=== PATIENT | male | born 1945 | race Caucasian/White ===

== ENCOUNTER 2021-09-11 11:42 | Inpatient (IN) ==
[2021-09-11 14:03] LABS: Basophils % 0.6 %; Eosinophils # 0.2 K/mcL (0.0-0.6); Eosinophils % 3.8 %; Hematocrit 36.8 % (37.5-50.1); Hemoglobin 12.3 g/dL (12.9-16.9); Immature Granulocytes % 0.2 % (0-4); Lymphocytes # 1.2 K/mcL (0.6-4.6); Mean Corpuscular HGB Conc 33.4 g/dL (31.6-35.5); Mean Corpuscular Hemoglobin 30.2 pg (28.0-33.3); Mean Corpuscular Volume 90.4 fL (83.0-100.0); Mean Platelet Volume 11.8 fL (9.4-12.4); Monocytes # 0.7 K/mcL (0.0-1.3); Monocytes % 11.1 %; Neutrophils # 4.1 K/mcL (1.6-8.9); Platelet Count 246 K/mcL (140-400); Red Blood Count 4.07 M/mcL (4.19-5.50); Red Cell Distribution Width 12.7 % (11.5-14.5); Segmented Neutrophils % 65.3 %; White Blood Count 6.3 K/mcL (4.3-11.1)
[2021-09-11 14:14] LABS: INR 1.2; Prothrombin Time 13.9 Seconds (9.4-12.1)
[2021-09-11 14:17] LABS: Activated Partial Thrombo Time 37.2 Seconds (26.0-36.0)
[2021-09-11 14:42] LABS: BUN/Creatinine Ratio 14 (6-26); Blood Urea Nitrogen 12 mg/dL (8-23); Calcium 9.4 mg/dL (8.6-10.3); Carbon Dioxide 24 mEq/L (23-29); Chloride 103 mEq/L (98-107); Glucose 91 mg/dL (70-105); Osmolality,Calculated 285 (280-300); Potassium 3.7 mEq/L (3.5-5.1); Sodium 138 mEq/L (136-145); Troponin I < 0.03 ng/mL (< 0.04); eGFR For African Americans > 60 (> 60); eGFR For Non-African Americans > 60 (> 60)
[2021-09-11] MEDS ORDERED: Naloxone 0.4 MG/ML INJ IVP PRN (15:29)
[2021-09-11] MEDS ORDERED: Perflutren Lipid Microsphere 1.3 ML in 0.9 % Sodium Chloride 8.7 ML IVP PRN (15:32)
[2021-09-11] MEDS ORDERED: *HR* Labetalol 20 MG/4 ML SYRINGE IVP ONE ×2 (16:26→22:26)
[2021-09-11] MEDS: *HR* Labetalol 20 MG/4 ML SYRINGE IVP PRN (18:42)
[2021-09-11] MEDS ORDERED: Latanoprost 2.5 ML BOTTLE BOTH EYES SCH (21:00)
[2021-09-11] MEDS: Acetaminophen 325 MG TABLET PO PRN (22:25)
[2021-09-11] MEDS: *HR* Heparin 5,000 UNIT/ML VIAL SQ SCH (22:26)
[2021-09-11] MEDS ORDERED: *HR* HYDROcodone/Acet 5/325 mg TABLET PO ONE (22:35)
[2021-09-12 03:44] LABS: BUN/Creatinine Ratio 13 (6-26); Blood Urea Nitrogen 11 mg/dL (8-23); Calcium 8.8 mg/dL (8.6-10.3); Carbon Dioxide 27 mEq/L (23-29); Chloride 102 mEq/L (98-107); Glucose 110 mg/dL (70-105); Osmolality,Calculated 286 (280-300); Potassium 3.3 mEq/L (3.5-5.1); Sodium 138 mEq/L (136-145); eGFR For African Americans > 60 (> 60); eGFR For Non-African Americans > 60 (> 60)
[2021-09-12 03:48] LABS: Basophils % 0.7 %; Eosinophils # 0.3 K/mcL (0.0-0.6); Eosinophils % 4.4 %; Hematocrit 30.6 % (37.5-50.1); Hemoglobin 10.2 g/dL (12.9-16.9); Immature Granulocytes % 0.4 % (0-4); Lymphocytes # 1.4 K/mcL (0.6-4.6); Lymphocytes % 25.6 %; Mean Corpuscular HGB Conc 33.3 g/dL (31.6-35.5); Mean Corpuscular Hemoglobin 29.5 pg (28.0-33.3); Mean Corpuscular Volume 88.4 fL (83.0-100.0); Mean Platelet Volume 11.4 fL (9.4-12.4); Monocytes # 0.7 K/mcL (0.0-1.3); Monocytes % 11.9 %; Neutrophils # 3.2 K/mcL (1.6-8.9); Platelet Count 209 K/mcL (140-400); Red Blood Count 3.46 M/mcL (4.19-5.50); Red Cell Distribution Width 12.8 % (11.5-14.5); White Blood Count 5.6 K/mcL (4.3-11.1)
[2021-09-12] MEDS ORDERED: *HR* HYDROcodone/Acet 5/325 mg TABLET PO ONE (04:00)
[2021-09-12] MEDS: *HR* Labetalol 20 MG/4 ML SYRINGE IVP PRN (07:39)
[2021-09-12] MEDS: *HR* Heparin 5,000 UNIT/ML VIAL SQ SCH ×3 (08:59→17:20)
[2021-09-12] MEDS: polyethylene glycoL 3350 17 GM POWD.PACK PO SCH (08:59)
[2021-09-12] MEDS ORDERED: lisinopriL 10 MG TABLET PO SCH (09:00)
[2021-09-12] MEDS ORDERED: *HR* Labetalol 20 MG/4 ML SYRINGE IVP ONE (10:52)
[2021-09-12] MEDS: hydroCHLOROthiazide 25 MG TABLET PO SCH (11:24)
[2021-09-12] MEDS ORDERED: *HR* FentaNYL (PF) 100 MCG/2 ML VIAL ONE (15:22)
[2021-09-12] MEDS ORDERED: Heparin 1,000 UNITS/500 mL 500 ML ONE (15:22)
[2021-09-12] MEDS ORDERED: 0.9 % Sodium Chloride 2,000 ML ONE (15:22)
[2021-09-12] MEDS ORDERED: *HR* Midazolam HCl 2 MG/2 ML VIAL ONE (15:22)
[2021-09-12] MEDS ORDERED: ISOVUE-370 200 ML INFUS..BTL ONE (15:22)
[2021-09-12] MEDS ORDERED: *HR* Heparin 10,000 UNIT/10 ML VIAL ONE (15:22)
[2021-09-12] MEDS ORDERED: Nitroglycerin 1,000 MCG/5 ML VIAL IV ONE (15:23)
[2021-09-12] MEDS: niCARdipine 20 MG/200 ML MLS IVC SCH (17:20)
[2021-09-12] MEDS ORDERED: Isovue-370 500 ML BOTTLE IVP ONE (18:05)
[2021-09-12] MEDS: Acetaminophen/Butalbital/CaffeineTABLET PO PRN (18:28)
[2021-09-13] MEDS: *HR* Heparin 5,000 UNIT/ML VIAL SQ SCH ×4 (05:29→23:34)
[2021-09-13 05:50] LABS: Basophils % 0.6 %; Eosinophils # 0.2 K/mcL (0.0-0.6); Hematocrit 31.9 % (37.5-50.1); Hemoglobin 10.8 g/dL (12.9-16.9); Immature Granulocytes % 0.2 % (0-4); Lymphocytes # 1.3 K/mcL (0.6-4.6); Lymphocytes % 25.4 %; Mean Corpuscular HGB Conc 33.9 g/dL (31.6-35.5); Mean Corpuscular Hemoglobin 30.1 pg (28.0-33.3); Mean Corpuscular Volume 88.9 fL (83.0-100.0); Mean Platelet Volume 11.1 fL (9.4-12.4); Monocytes # 0.7 K/mcL (0.0-1.3); Monocytes % 13.4 %; Platelet Count 238 K/mcL (140-400); Red Blood Count 3.59 M/mcL (4.19-5.50); Red Cell Distribution Width 12.7 % (11.5-14.5); Segmented Neutrophils % 56.4 %; White Blood Count 5.3 K/mcL (4.3-11.1)
[2021-09-13 06:17] LABS: BUN/Creatinine Ratio 12 (6-26); Blood Urea Nitrogen 11 mg/dL (8-23); Calcium 9.1 mg/dL (8.6-10.3); Carbon Dioxide 27 mEq/L (23-29); Chloride 101 mEq/L (98-107); Glucose 106 mg/dL (70-105); Osmolality,Calculated 280 (280-300); Potassium 3.5 mEq/L (3.5-5.1); Sodium 135 mEq/L (136-145); eGFR For African Americans > 60 (> 60); eGFR For Non-African Americans > 60 (> 60)
[2021-09-13] MEDS: hydroCHLOROthiazide 25 MG TABLET PO SCH (08:05)
[2021-09-13] MEDS: polyethylene glycoL 3350 17 GM POWD.PACK PO SCH ×2 (08:06→13:42)
[2021-09-13] MEDS: Aspirin Enteric Coated 81 MG Tablet PO SCH (13:42)
[2021-09-13] MEDS: carvediloL 6.25 MG TABLET PO SCH (16:35)
[2021-09-13] MEDS: niCARdipine 20 MG/200 ML MLS IVC SCH ×3 (21:21→21:23)
[2021-09-13] MEDS ORDERED: Latanoprost 2.5 ML BOTTLE BOTH EYES ONE ×2 (21:21→22:00)
[2021-09-13] MEDS: Acetaminophen/Butalbital/CaffeineTABLET PO PRN (23:38)
[2021-09-14 02:06] LABS: Basophils # 0.1 K/mcL (0.0-0.2); Eosinophils # 0.3 K/mcL (0.0-0.6); Eosinophils % 6.1 %; Hematocrit 33.5 % (37.5-50.1); Hemoglobin 10.9 g/dL (12.9-16.9); Immature Granulocytes % 0.6 % (0-4); Lymphocytes # 1.6 K/mcL (0.6-4.6); Mean Corpuscular HGB Conc 32.5 g/dL (31.6-35.5); Mean Corpuscular Hemoglobin 28.9 pg (28.0-33.3); Mean Corpuscular Volume 88.9 fL (83.0-100.0); Mean Platelet Volume 11.2 fL (9.4-12.4); Monocytes # 0.8 K/mcL (0.0-1.3); Monocytes % 14.5 %; Neutrophils # 2.5 K/mcL (1.6-8.9); Platelet Count 242 K/mcL (140-400); Red Blood Count 3.77 M/mcL (4.19-5.50); Red Cell Distribution Width 12.8 % (11.5-14.5); Segmented Neutrophils % 46.8 %; White Blood Count 5.3 K/mcL (4.3-11.1)
[2021-09-14 02:22] LABS: BUN/Creatinine Ratio 15 (6-26); Blood Urea Nitrogen 14 mg/dL (8-23); Calcium 9.2 mg/dL (8.6-10.3); Carbon Dioxide 30 mEq/L (23-29); Chloride 101 mEq/L (98-107); Glucose 102 mg/dL (70-105); Osmolality,Calculated 287 (280-300); Potassium 3.6 mEq/L (3.5-5.1); Sodium 138 mEq/L (136-145); eGFR For African Americans > 60 (> 60); eGFR For Non-African Americans > 60 (> 60)
[2021-09-14] MEDS: polyethylene glycoL 3350 17 GM POWD.PACK PO SCH (07:45)
[2021-09-14] MEDS: *HR* Heparin 5,000 UNIT/ML VIAL SQ SCH ×3 (07:45→23:25)
[2021-09-14] MEDS: hydroCHLOROthiazide 25 MG TABLET PO SCH (07:45)
[2021-09-14] MEDS: carvediloL 6.25 MG TABLET PO SCH ×2 (07:45→16:37)
[2021-09-14] MEDS: Aspirin Enteric Coated 81 MG Tablet PO SCH (07:45)
[2021-09-14] MEDS: niCARdipine 20 MG/200 ML MLS IVC SCH ×4 (12:03→23:18)
[2021-09-14] MEDS: Acetaminophen 325 MG TABLET PO PRN (23:19)
[2021-09-15] MEDS: niCARdipine 20 MG/200 ML MLS IVC SCH ×6 (06:55→21:08)
[2021-09-15] MEDS: hydroCHLOROthiazide 25 MG TABLET PO SCH (08:20)
[2021-09-15] MEDS: *HR* Heparin 5,000 UNIT/ML VIAL SQ SCH ×2 (08:20→17:12)
[2021-09-15] MEDS: Aspirin Enteric Coated 81 MG Tablet PO SCH (08:20)
[2021-09-15] MEDS: carvediloL 6.25 MG TABLET PO SCH ×2 (08:20→17:12)
[2021-09-15 09:01] LABS: Hematocrit 35.8 % (37.5-50.1); Mean Corpuscular HGB Conc 33.5 g/dL (31.6-35.5); Mean Corpuscular Hemoglobin 30.2 pg (28.0-33.3); Mean Corpuscular Volume 89.9 fL (83.0-100.0); Mean Platelet Volume 11.1 fL (9.4-12.4); Platelet Count 270 K/mcL (140-400); Red Blood Count 3.98 M/mcL (4.19-5.50); Red Cell Distribution Width 12.7 % (11.5-14.5); White Blood Count 5.1 K/mcL (4.3-11.1)
[2021-09-15 09:20] LABS: BUN/Creatinine Ratio 17 (6-26); Blood Urea Nitrogen 19 mg/dL (8-23); Calcium 9.1 mg/dL (8.6-10.3); Carbon Dioxide 32 mEq/L (23-29); Chloride 98 mEq/L (98-107); Glucose 164 mg/dL (70-105); Osmolality,Calculated 290 (280-300); Potassium 3.9 mEq/L (3.5-5.1); Sodium 137 mEq/L (136-145); eGFR For African Americans > 60 (> 60); eGFR For Non-African Americans > 60 (> 60)
[2021-09-15] MEDS: polyethylene glycoL 3350 17 GM POWD.PACK PO SCH (13:40)
[2021-09-16] MEDS: *HR* Heparin 5,000 UNIT/ML VIAL SQ SCH ×4 (00:01→23:37)
[2021-09-16 01:10] LABS: Hemoglobin 12.2 g/dL (12.9-16.9); Mean Corpuscular Hemoglobin 29.3 pg (28.0-33.3); Mean Corpuscular Volume 88.7 fL (83.0-100.0); Platelet Count 276 K/mcL (140-400); Red Blood Count 4.17 M/mcL (4.19-5.50); Red Cell Distribution Width 12.8 % (11.5-14.5); White Blood Count 6.9 K/mcL (4.3-11.1)
[2021-09-16 01:28] LABS: BUN/Creatinine Ratio 23 (6-26); Blood Urea Nitrogen 25 mg/dL (8-23); Calcium 9.4 mg/dL (8.6-10.3); Carbon Dioxide 29 mEq/L (23-29); Chloride 98 mEq/L (98-107); Glucose 102 mg/dL (70-105); Osmolality,Calculated 285 (280-300); Potassium 3.8 mEq/L (3.5-5.1); Sodium 135 mEq/L (136-145); eGFR For African Americans > 60 (> 60); eGFR For Non-African Americans > 60 (> 60)
[2021-09-16] MEDS: niCARdipine 20 MG/200 ML MLS IVC SCH ×3 (03:07→09:56)
[2021-09-16] MEDS: hydroCHLOROthiazide 25 MG TABLET PO SCH (07:22)
[2021-09-16] MEDS: Aspirin Enteric Coated 81 MG Tablet PO SCH (07:22)
[2021-09-16] MEDS: carvediloL 6.25 MG TABLET PO SCH ×2 (07:22→16:36)
[2021-09-16] MEDS: polyethylene glycoL 3350 17 GM POWD.PACK PO SCH (12:47)
[2021-09-16] MEDS: Melatonin 3 MG TABLET PO SCH (20:26)
[2021-09-17 04:00] LABS: Hematocrit 34.7 % (37.5-50.1); Hemoglobin 11.5 g/dL (12.9-16.9); Mean Corpuscular HGB Conc 33.1 g/dL (31.6-35.5); Mean Corpuscular Hemoglobin 29.7 pg (28.0-33.3); Mean Corpuscular Volume 89.7 fL (83.0-100.0); Mean Platelet Volume 10.7 fL (9.4-12.4); Platelet Count 250 K/mcL (140-400); Red Blood Count 3.87 M/mcL (4.19-5.50); Red Cell Distribution Width 12.9 % (11.5-14.5); White Blood Count 5.9 K/mcL (4.3-11.1)
[2021-09-17 04:18] LABS: Calcium 9.2 mg/dL (8.6-10.3); Potassium 3.8 mEq/L (3.5-5.1)
[2021-09-17] MEDS ORDERED: *HR* Phenylephrine 10 MG/ML VIAL ONE (06:14)
[2021-09-17] MEDS ORDERED: *HR* FentaNYL (PF) 250 MCG/5 ML VIAL ONE (06:15)
[2021-09-17] MEDS ORDERED: *HR* Midazolam HCl 5 MG/5 ML VIAL IVP ONE (06:15)
[2021-09-17] MEDS ORDERED: *HR* Heparin 10,000 UNIT/10 ML VIAL ONE (06:27)
[2021-09-17] MEDS ORDERED: Protamine Sulfate 50 MG/5 ML VIAL IVP ONE (06:27)
[2021-09-17] MEDS ORDERED: 0.9 % Sodium Chloride 4,000 ML ONE (06:28)
[2021-09-17] MEDS ORDERED: Heparin 1,000 UNITS/500 mL 1,500 ML ONE (06:28)
[2021-09-17] MEDS ORDERED: ISOVUE-370 200 ML INFUS..BTL ONE (06:28)
[2021-09-17] MEDS ORDERED: Nitroglycerin 1,000 MCG/5 ML VIAL IV ONE (06:28)
[2021-09-17] MEDS: carvediloL 6.25 MG TABLET PO SCH ×2 (06:36→16:50)
[2021-09-17] MEDS ORDERED: CeFAZolin Syr 2,000MG/20 ML 2,000 MG/20 ML SYRINGE IVPB ONE (07:00)
[2021-09-17] MEDS ORDERED: Vancomycin 1,000 MG in Sodium Chloride IRRigation 250 ML IR ONE (07:00)
[2021-09-17] MEDS ORDERED: Vancomycin 1,000 MG VIAL ONE (07:14)
[2021-09-17] MEDS ORDERED: 0.9 % Sodium Chloride 250 ML ONE (07:15)
[2021-09-17] MEDS ORDERED: 0.9 % Sodium Chloride 1,000 ML ONE (07:15)
[2021-09-17] MEDS ORDERED: Vancomycin 1,250 MG/262.5 ML IV.SOLN IVPB ONE (08:00)
[2021-09-17] MEDS ORDERED: Perflutren Lipid Microsphere 1.3 ML in 0.9 % Sodium Chloride 8.7 ML IVP PRN ×2 (08:33→14:43)
[2021-09-17] MEDS ORDERED: niCARdipine 20 MG/200 ML MLS IVC ONE (08:37)
[2021-09-17] MEDS: hydroCHLOROthiazide 25 MG TABLET PO SCH (10:46)
[2021-09-17] MEDS: Aspirin Enteric Coated 81 MG Tablet PO SCH (10:46)
[2021-09-17] MEDS: *HR* Heparin 5,000 UNIT/ML VIAL SQ SCH ×2 (10:46→16:50)
[2021-09-17] MEDS: polyethylene glycoL 3350 17 GM POWD.PACK PO SCH (10:47)
[2021-09-17] MEDS: niCARdipine 20 MG/200 ML MLS IVC SCH (10:48)
[2021-09-17] MEDS: 0.9 % Sodium Chloride 1,000 ML IVC SCH ×2 (10:53→20:08)
[2021-09-17] MEDS ORDERED: *HR* Labetalol 20 MG/4 ML SYRINGE IVP ONE (11:30)
[2021-09-17] MEDS ORDERED: *HR* Propofol 200 MG/20 ML VIAL IVP ONE (11:30)
[2021-09-17] MEDS: CeFAZolin 2,000 MG/120 ML BAG IVPB SCH (17:48)
[2021-09-17] MEDS: Melatonin 3 MG TABLET PO SCH (20:07)
[2021-09-18] MEDS: CeFAZolin 2,000 MG/120 ML BAG IVPB SCH ×3 (00:28→18:05)
[2021-09-18] MEDS: *HR* Heparin 5,000 UNIT/ML VIAL SQ SCH ×3 (00:28→15:30)
[2021-09-18 04:02] LABS: Hematocrit 33.9 % (37.5-50.1); Hemoglobin 11.3 g/dL (12.9-16.9); Mean Corpuscular HGB Conc 33.3 g/dL (31.6-35.5); Mean Corpuscular Hemoglobin 29.8 pg (28.0-33.3); Mean Corpuscular Volume 89.4 fL (83.0-100.0); Mean Platelet Volume 10.6 fL (9.4-12.4); Platelet Count 243 K/mcL (140-400); Red Blood Count 3.79 M/mcL (4.19-5.50); White Blood Count 8.1 K/mcL (4.3-11.1)
[2021-09-18 04:13] LABS: BUN/Creatinine Ratio 24 (6-26); Blood Urea Nitrogen 27 mg/dL (8-23); Calcium 8.6 mg/dL (8.6-10.3); Carbon Dioxide 26 mEq/L (23-29); Chloride 104 mEq/L (98-107); Glucose 115 mg/dL (70-105); Osmolality,Calculated 290 (280-300); Potassium 3.8 mEq/L (3.5-5.1); Sodium 137 mEq/L (136-145); eGFR For African Americans > 60 (> 60); eGFR For Non-African Americans > 60 (> 60)
[2021-09-18] MEDS: 0.9 % Sodium Chloride 1,000 ML IVC SCH ×3 (05:48→21:24)
[2021-09-18] MEDS: polyethylene glycoL 3350 17 GM POWD.PACK PO SCH (08:30)
[2021-09-18] MEDS: Aspirin Enteric Coated 81 MG Tablet PO SCH (08:30)
[2021-09-18] MEDS: carvediloL 6.25 MG TABLET PO SCH ×2 (08:30→16:06)
[2021-09-18] MEDS: hydroCHLOROthiazide 25 MG TABLET PO SCH (08:30)
[2021-09-18] MEDS ORDERED: Naloxone 0.4 MG/ML INJ IVP PRN (18:27)
[2021-09-18] MEDS: amLODIPine 5 MG TABLET PO SCH ×2 (19:43→21:23)
[2021-09-18] MEDS: Melatonin 3 MG TABLET PO SCH (21:23)
[2021-09-19] MEDS: *HR* Heparin 5,000 UNIT/ML VIAL SQ SCH ×3 (01:12→16:54)
[2021-09-19] MEDS: Acetaminophen 325 MG TABLET PO PRN (01:14)
[2021-09-19] MEDS: 0.9 % Sodium Chloride 1,000 ML IVC SCH ×2 (01:15→16:27)
[2021-09-19 01:54] LABS: Hematocrit 34.4 % (37.5-50.1); Hemoglobin 11.2 g/dL (12.9-16.9); Mean Corpuscular HGB Conc 32.6 g/dL (31.6-35.5); Mean Corpuscular Volume 89.1 fL (83.0-100.0); Mean Platelet Volume 10.4 fL (9.4-12.4); Platelet Count 212 K/mcL (140-400); Red Blood Count 3.86 M/mcL (4.19-5.50); Red Cell Distribution Width 13.2 % (11.5-14.5); White Blood Count 9.6 K/mcL (4.3-11.1)
[2021-09-19] MEDS ORDERED: CeFAZolin 2,000 MG/120 ML BAG IVPB SCH (02:00)
[2021-09-19 03:28] LABS: BUN/Creatinine Ratio 20 (6-26); Blood Urea Nitrogen 20 mg/dL (8-23); Calcium 8.7 mg/dL (8.6-10.3); Carbon Dioxide 27 mEq/L (23-29); Chloride 104 mEq/L (98-107); Glucose 112 mg/dL (70-105); Osmolality,Calculated 287 (280-300); Potassium 3.6 mEq/L (3.5-5.1); Sodium 137 mEq/L (136-145); eGFR For African Americans > 60 (> 60); eGFR For Non-African Americans > 60 (> 60)
[2021-09-19] MEDS ORDERED: carvediloL 6.25 MG TABLET PO SCH ×2 (06:30→17:00)
[2021-09-19] MEDS: polyethylene glycoL 3350 17 GM POWD.PACK PO SCH (08:26)
[2021-09-19] MEDS: amLODIPine 5 MG TABLET PO SCH ×2 (08:27→21:44)
[2021-09-19] MEDS: Aspirin Enteric Coated 81 MG Tablet PO SCH (08:28)
[2021-09-19] MEDS ORDERED: carvediloL 6.25 MG TABLET PO ONE (10:30)
[2021-09-19] MEDS: lisinopriL 5 MG TABLET PO SCH (10:56)
[2021-09-19] MEDS: carvediloL 6.25 MG TABLET PO SCH (16:50)
[2021-09-19] MEDS: Melatonin 3 MG TABLET PO SCH (21:44)
[2021-09-20] MEDS: *HR* Heparin 5,000 UNIT/ML VIAL SQ SCH ×3 (00:30→17:29)
[2021-09-20] MEDS: 0.9 % Sodium Chloride 1,000 ML IVC SCH (08:04)
[2021-09-20] MEDS: carvediloL 6.25 MG TABLET PO SCH ×2 (08:05→17:29)
[2021-09-20] MEDS: Aspirin Enteric Coated 81 MG Tablet PO SCH (08:05)
[2021-09-20] MEDS: polyethylene glycoL 3350 17 GM POWD.PACK PO SCH (08:06)
[2021-09-20] MEDS: amLODIPine 5 MG TABLET PO SCH ×2 (08:09→22:10)
[2021-09-20] MEDS: lisinopriL 5 MG TABLET PO SCH (10:04)
[2021-09-20 10:20] LABS: Basophils % 0.4 %; Eosinophils # 0.2 K/mcL (0.0-0.6); Eosinophils % 2.3 %; Hematocrit 31.8 % (37.5-50.1); Hemoglobin 10.5 g/dL (12.9-16.9); Immature Granulocytes % 0.4 % (0-4); Lymphocytes # 1.1 K/mcL (0.6-4.6); Lymphocytes % 14.6 %; Mean Corpuscular Hemoglobin 30.2 pg (28.0-33.3); Mean Corpuscular Volume 91.4 fL (83.0-100.0); Mean Platelet Volume 10.5 fL (9.4-12.4); Monocytes # 0.8 K/mcL (0.0-1.3); Monocytes % 10.4 %; Neutrophils # 5.3 K/mcL (1.6-8.9); Platelet Count 187 K/mcL (140-400); Red Blood Count 3.48 M/mcL (4.19-5.50); Red Cell Distribution Width 13.4 % (11.5-14.5); Segmented Neutrophils % 71.9 %; White Blood Count 7.4 K/mcL (4.3-11.1)
[2021-09-20 10:39] LABS: BUN/Creatinine Ratio 24 (6-26); Blood Urea Nitrogen 29 mg/dL (8-23); Calcium 8.7 mg/dL (8.6-10.3); Carbon Dioxide 28 mEq/L (23-29); Chloride 103 mEq/L (98-107); Glucose 154 mg/dL (70-105); Osmolality,Calculated 293 (280-300); Potassium 3.5 mEq/L (3.5-5.1); Sodium 137 mEq/L (136-145); eGFR For African Americans > 60 (> 60); eGFR For Non-African Americans 59 (> 60)
[2021-09-20] MEDS: Melatonin 3 MG TABLET PO SCH (22:11)
[2021-09-21] MEDS: *HR* Heparin 5,000 UNIT/ML VIAL SQ SCH ×3 (00:30→16:24)
[2021-09-21 06:29] LABS: Basophils # 0.1 K/mcL (0.0-0.2); Basophils % 0.8 %; Eosinophils # 0.2 K/mcL (0.0-0.6); Eosinophils % 2.3 %; Hematocrit 31.3 % (37.5-50.1); Hemoglobin 10.3 g/dL (12.9-16.9); Immature Granulocytes % 0.6 % (0-4); Lymphocytes # 1.7 K/mcL (0.6-4.6); Lymphocytes % 21.8 %; Mean Corpuscular HGB Conc 32.9 g/dL (31.6-35.5); Mean Corpuscular Hemoglobin 29.8 pg (28.0-33.3); Mean Corpuscular Volume 90.5 fL (83.0-100.0); Mean Platelet Volume 11.4 fL (9.4-12.4); Monocytes % 12.3 %; Neutrophils # 4.8 K/mcL (1.6-8.9); Platelet Count 201 K/mcL (140-400); Red Blood Count 3.46 M/mcL (4.19-5.50); Red Cell Distribution Width 13.6 % (11.5-14.5); Segmented Neutrophils % 62.2 %; White Blood Count 7.7 K/mcL (4.3-11.1)
[2021-09-21 07:22] LABS: BUN/Creatinine Ratio 31 (6-26); Blood Urea Nitrogen 31 mg/dL (8-23); Calcium 8.7 mg/dL (8.6-10.3); Carbon Dioxide 29 mEq/L (23-29); Chloride 105 mEq/L (98-107); Glucose 132 mg/dL (70-105); Magnesium 1.6 mg/dL (1.6-2.6); Osmolality,Calculated 296 (280-300); Potassium 3.6 mEq/L (3.5-5.1); Sodium 139 mEq/L (136-145); eGFR For African Americans > 60 (> 60); eGFR For Non-African Americans > 60 (> 60)
[2021-09-21] MEDS: Aspirin Enteric Coated 81 MG Tablet PO SCH (08:04)
[2021-09-21] MEDS: amLODIPine 5 MG TABLET PO SCH ×2 (08:05→21:52)
[2021-09-21] MEDS: polyethylene glycoL 3350 17 GM POWD.PACK PO SCH (08:05)
[2021-09-21] MEDS: lisinopriL 5 MG TABLET PO SCH (08:06)
[2021-09-21] MEDS: carvediloL 6.25 MG TABLET PO SCH ×2 (08:06→16:25)
[2021-09-21] MEDS: Melatonin 3 MG TABLET PO SCH (21:52)
[2021-09-22] MEDS: *HR* Heparin 5,000 UNIT/ML VIAL SQ SCH ×3 (01:38→17:11)
[2021-09-22 06:32] LABS: Basophils % 0.5 %; Eosinophils # 0.1 K/mcL (0.0-0.6); Eosinophils % 1.7 %; Hematocrit 29.9 % (37.5-50.1); Hemoglobin 10.2 g/dL (12.9-16.9); Immature Granulocytes % 0.5 % (0-4); Lymphocytes # 1.4 K/mcL (0.6-4.6); Lymphocytes % 16.3 %; Mean Corpuscular HGB Conc 34.1 g/dL (31.6-35.5); Mean Corpuscular Hemoglobin 30.8 pg (28.0-33.3); Mean Corpuscular Volume 90.3 fL (83.0-100.0); Mean Platelet Volume 11.4 fL (9.4-12.4); Monocytes # 1.1 K/mcL (0.0-1.3); Monocytes % 13.5 %; Neutrophils # 5.7 K/mcL (1.6-8.9); Platelet Count 226 K/mcL (140-400); Red Blood Count 3.31 M/mcL (4.19-5.50); Red Cell Distribution Width 13.6 % (11.5-14.5); Segmented Neutrophils % 67.5 %; White Blood Count 8.4 K/mcL (4.3-11.1)
[2021-09-22] MEDS: Aspirin Enteric Coated 81 MG Tablet PO SCH (07:59)
[2021-09-22] MEDS: amLODIPine 5 MG TABLET PO SCH ×2 (07:59→20:33)
[2021-09-22] MEDS: carvediloL 6.25 MG TABLET PO SCH ×2 (08:00→17:11)
[2021-09-22] MEDS: lisinopriL 5 MG TABLET PO SCH (08:00)
[2021-09-22] MEDS: polyethylene glycoL 3350 17 GM POWD.PACK PO SCH (08:01)
[2021-09-22 10:41] LABS: BUN/Creatinine Ratio 31 (6-26); Blood Urea Nitrogen 30 mg/dL (8-23); Calcium 8.8 mg/dL (8.6-10.3); Carbon Dioxide 28 mEq/L (23-29); Chloride 104 mEq/L (98-107); Glucose 156 mg/dL (70-105); Magnesium 1.8 mg/dL (1.6-2.6); Osmolality,Calculated 293 (280-300); Potassium 3.9 mEq/L (3.5-5.1); Sodium 137 mEq/L (136-145); eGFR For African Americans > 60 (> 60); eGFR For Non-African Americans > 60 (> 60)
[2021-09-22] MEDS: Melatonin 3 MG TABLET PO SCH (20:32)
[2021-09-23] MEDS: *HR* Heparin 5,000 UNIT/ML VIAL SQ SCH ×3 (00:41→16:58)
[2021-09-23 07:08] LABS: Basophils % 0.4 %; Eosinophils # 0.1 K/mcL (0.0-0.6); Eosinophils % 1.1 %; Hematocrit 31.7 % (37.5-50.1); Hemoglobin 10.7 g/dL (12.9-16.9); Immature Granulocytes % 0.5 % (0-4); Lymphocytes # 1.4 K/mcL (0.6-4.6); Lymphocytes % 15.5 %; Mean Corpuscular HGB Conc 33.8 g/dL (31.6-35.5); Mean Corpuscular Hemoglobin 30.3 pg (28.0-33.3); Mean Corpuscular Volume 89.8 fL (83.0-100.0); Mean Platelet Volume 11.1 fL (9.4-12.4); Monocytes # 1.2 K/mcL (0.0-1.3); Monocytes % 12.6 %; Neutrophils # 6.5 K/mcL (1.6-8.9); Platelet Count 217 K/mcL (140-400); Red Blood Count 3.53 M/mcL (4.19-5.50); Red Cell Distribution Width 13.4 % (11.5-14.5); Segmented Neutrophils % 69.9 %; White Blood Count 9.3 K/mcL (4.3-11.1)
[2021-09-23 07:28] LABS: BUN/Creatinine Ratio 30 (6-26); Blood Urea Nitrogen 28 mg/dL (8-23); Calcium 8.9 mg/dL (8.6-10.3); Carbon Dioxide 28 mEq/L (23-29); Chloride 103 mEq/L (98-107); Glucose 113 mg/dL (70-105); Magnesium 1.7 mg/dL (1.6-2.6); Osmolality,Calculated 292 (280-300); Potassium 3.8 mEq/L (3.5-5.1); Sodium 138 mEq/L (136-145); eGFR For African Americans > 60 (> 60); eGFR For Non-African Americans > 60 (> 60)
[2021-09-23] MEDS: Aspirin Enteric Coated 81 MG Tablet PO SCH (07:29)
[2021-09-23] MEDS: lisinopriL 5 MG TABLET PO SCH (07:29)
[2021-09-23] MEDS: amLODIPine 5 MG TABLET PO SCH ×2 (07:30→21:17)
[2021-09-23] MEDS: carvediloL 6.25 MG TABLET PO SCH ×2 (07:30→15:21)
[2021-09-23] MEDS: polyethylene glycoL 3350 17 GM POWD.PACK PO SCH (07:30)
[2021-09-23] MEDS ORDERED: 0.9 % Sodium Chloride 1,000 ML IVC SCH (10:15)
[2021-09-23] MEDS ORDERED: *HR* FentaNYL (PF) 100 MCG/2 ML VIAL ONE (11:55)
[2021-09-23] MEDS ORDERED: *HR* Midazolam HCl 2 MG/2 ML VIAL ONE (11:55)
[2021-09-23] MEDS ORDERED: *HR* Heparin 10,000 UNIT/10 ML VIAL ONE (11:56)
[2021-09-23] MEDS ORDERED: Nitroglycerin 1,000 MCG/5 ML VIAL IV ONE (11:56)
[2021-09-23] MEDS ORDERED: ISOVUE-370 200 ML INFUS..BTL ONE ×2 (11:56→13:35)
[2021-09-23] MEDS ORDERED: 0.9 % Sodium Chloride 1,000 ML ONE ×2 (11:56→11:59)
[2021-09-23] MEDS ORDERED: Heparin 1,000 UNITS/500 mL 500 ML ONE ×2 (11:56→13:29)
[2021-09-23] MEDS ORDERED: Tirofiban 12.5 MG/250ML 12.5 MG/250 ML BAG ONE (12:19)
[2021-09-23] MEDS: Acetaminophen/Butalbital/CaffeineTABLET PO PRN (15:18)
[2021-09-23] MEDS: Melatonin 3 MG TABLET PO SCH (21:16)
[2021-09-24] MEDS: *HR* Heparin 5,000 UNIT/ML VIAL SQ SCH ×3 (00:01→16:43)
[2021-09-24] MEDS: Acetaminophen 325 MG TABLET PO PRN ×3 (00:56→18:58)
[2021-09-24 03:54] LABS: Basophils % 0.3 %; Eosinophils % 0.4 %; Hematocrit 30.6 % (37.5-50.1); Immature Granulocytes % 0.4 % (0-4); Lymphocytes # 0.9 K/mcL (0.6-4.6); Lymphocytes % 8.2 %; Mean Corpuscular HGB Conc 32.7 g/dL (31.6-35.5); Mean Corpuscular Hemoglobin 29.2 pg (28.0-33.3); Mean Corpuscular Volume 89.5 fL (83.0-100.0); Mean Platelet Volume 11.3 fL (9.4-12.4); Monocytes # 1.2 K/mcL (0.0-1.3); Monocytes % 11.6 %; Neutrophils # 8.4 K/mcL (1.6-8.9); Platelet Count 210 K/mcL (140-400); Red Blood Count 3.42 M/mcL (4.19-5.50); Red Cell Distribution Width 13.6 % (11.5-14.5); Segmented Neutrophils % 79.1 %; White Blood Count 10.6 K/mcL (4.3-11.1)
[2021-09-24 04:14] LABS: BUN/Creatinine Ratio 30 (6-26); Blood Urea Nitrogen 31 mg/dL (8-23); Calcium 8.8 mg/dL (8.6-10.3); Carbon Dioxide 26 mEq/L (23-29); Chloride 102 mEq/L (98-107); Glucose 129 mg/dL (70-105); Magnesium 2.1 mg/dL (1.6-2.6); Osmolality,Calculated 288 (280-300); Sodium 135 mEq/L (136-145); eGFR For African Americans > 60 (> 60); eGFR For Non-African Americans > 60 (> 60)
[2021-09-24] MEDS ORDERED: 0.9 % Sodium Chloride 1,000 ML IVC SCH (08:30)
[2021-09-24] MEDS: lisinopriL 5 MG TABLET PO SCH (08:48)
[2021-09-24] MEDS: Aspirin Enteric Coated 81 MG Tablet PO SCH (08:49)
[2021-09-24] MEDS: amLODIPine 5 MG TABLET PO SCH ×2 (08:49→20:53)
[2021-09-24] MEDS: polyethylene glycoL 3350 17 GM POWD.PACK PO SCH (08:52)
[2021-09-24] MEDS: carvediloL 6.25 MG TABLET PO SCH ×2 (09:00→16:44)
[2021-09-24] MEDS: Melatonin 3 MG TABLET PO SCH (20:53)
[2021-09-25] MEDS: *HR* Heparin 5,000 UNIT/ML VIAL SQ SCH ×4 (01:06→23:42)
[2021-09-25] MEDS: Acetaminophen 325 MG TABLET PO PRN ×2 (01:07→11:03)
[2021-09-25 06:38] LABS: Basophils % 0.4 %; Eosinophils # 0.1 K/mcL (0.0-0.6); Eosinophils % 1.6 %; Hematocrit 30.8 % (37.5-50.1); Immature Granulocytes % 0.4 % (0-4); Lymphocytes # 1.1 K/mcL (0.6-4.6); Mean Corpuscular HGB Conc 32.5 g/dL (31.6-35.5); Mean Corpuscular Hemoglobin 29.2 pg (28.0-33.3); Mean Corpuscular Volume 89.8 fL (83.0-100.0); Mean Platelet Volume 11.5 fL (9.4-12.4); Monocytes # 0.9 K/mcL (0.0-1.3); Monocytes % 10.3 %; Neutrophils # 6.4 K/mcL (1.6-8.9); Platelet Count 209 K/mcL (140-400); Red Blood Count 3.43 M/mcL (4.19-5.50); Red Cell Distribution Width 13.6 % (11.5-14.5); Segmented Neutrophils % 74.3 %; White Blood Count 8.6 K/mcL (4.3-11.1)
[2021-09-25] MEDS: Acetaminophen/Butalbital/CaffeineTABLET PO PRN ×2 (06:51→21:00)
[2021-09-25 06:53] LABS: BUN/Creatinine Ratio 29 (6-26); Blood Urea Nitrogen 28 mg/dL (8-23); Calcium 8.7 mg/dL (8.6-10.3); Carbon Dioxide 28 mEq/L (23-29); Chloride 103 mEq/L (98-107); Glucose 109 mg/dL (70-105); Osmolality,Calculated 290 (280-300); Potassium 3.8 mEq/L (3.5-5.1); Sodium 137 mEq/L (136-145); eGFR For African Americans > 60 (> 60); eGFR For Non-African Americans > 60 (> 60)
[2021-09-25] MEDS: carvediloL 6.25 MG TABLET PO SCH ×2 (10:21→16:50)
[2021-09-25] MEDS: amLODIPine 5 MG TABLET PO SCH ×2 (10:25→21:01)
[2021-09-25] MEDS: Aspirin Enteric Coated 81 MG Tablet PO SCH (10:25)
[2021-09-25] MEDS: polyethylene glycoL 3350 17 GM POWD.PACK PO SCH (10:25)
[2021-09-25] MEDS: lisinopriL 5 MG TABLET PO SCH (10:26)
[2021-09-25] MEDS: Melatonin 3 MG TABLET PO SCH (21:00)
[2021-09-26 01:11] LABS: Basophils # 0.1 K/mcL (0.0-0.2); Basophils % 0.5 %; Eosinophils # 0.2 K/mcL (0.0-0.6); Eosinophils % 1.9 %; Hematocrit 31.5 % (37.5-50.1); Hemoglobin 10.3 g/dL (12.9-16.9); Immature Granulocytes % 0.4 % (0-4); Lymphocytes # 1.7 K/mcL (0.6-4.6); Mean Corpuscular HGB Conc 32.7 g/dL (31.6-35.5); Mean Corpuscular Hemoglobin 29.9 pg (28.0-33.3); Mean Corpuscular Volume 91.3 fL (83.0-100.0); Mean Platelet Volume 11.3 fL (9.4-12.4); Monocytes % 9.6 %; Neutrophils # 7.6 K/mcL (1.6-8.9); Platelet Count 292 K/mcL (140-400); Red Blood Count 3.45 M/mcL (4.19-5.50); Red Cell Distribution Width 13.5 % (11.5-14.5); Segmented Neutrophils % 71.6 %; White Blood Count 10.6 K/mcL (4.3-11.1)
[2021-09-26 01:32] LABS: BUN/Creatinine Ratio 27 (6-26); Blood Urea Nitrogen 32 mg/dL (8-23); Calcium 9.2 mg/dL (8.6-10.3); Carbon Dioxide 30 mEq/L (23-29); Chloride 104 mEq/L (98-107); Glucose 108 mg/dL (70-105); Magnesium 1.9 mg/dL (1.6-2.6); Osmolality,Calculated 295 (280-300); Potassium 3.8 mEq/L (3.5-5.1); Sodium 139 mEq/L (136-145); eGFR For African Americans > 60 (> 60); eGFR For Non-African Americans 59 (> 60)
[2021-09-26] MEDS: Acetaminophen/Butalbital/CaffeineTABLET PO PRN (07:30)
[2021-09-26] MEDS: lisinopriL 5 MG TABLET PO SCH (08:07)
[2021-09-26] MEDS: carvediloL 6.25 MG TABLET PO SCH ×2 (08:07→17:40)
[2021-09-26] MEDS: amLODIPine 5 MG TABLET PO SCH ×2 (08:07→21:08)
[2021-09-26] MEDS: polyethylene glycoL 3350 17 GM POWD.PACK PO SCH (08:11)
[2021-09-26] MEDS: Aspirin Enteric Coated 81 MG Tablet PO SCH (08:18)
[2021-09-26] MEDS ORDERED: *HR* Propofol 200 MG/20 ML VIAL IVP ONE (08:18)
[2021-09-26] MEDS ORDERED: Lidocaine -MPF 4% 5 ML AMPUL ONE (08:22)
[2021-09-26] MEDS ORDERED: *HR* Succinylcholine 200 MG/10 ML VIAL IVP ONE (08:22)
[2021-09-26] MEDS ORDERED: *HR* Rocuronium Bromide 50 MG/5 ML VIAL ONE ×2 (08:22→12:15)
[2021-09-26] MEDS ORDERED: Lidocaine -MPF 2% 5 ML VIAL ONE ×2 (08:22→10:23)
[2021-09-26] MEDS ORDERED: Ondansetron 4 MG/2 ML VIAL ONE (08:22)
[2021-09-26] MEDS ORDERED: *HR* Phenylephrine 10 MG/ML VIAL ONE (08:28)
[2021-09-26] MEDS: *HR* Heparin 5,000 UNIT/ML VIAL SQ SCH ×2 (08:52→17:40)
[2021-09-26] MEDS ORDERED: CeFAZolin Syr 2,000MG/20 ML 2,000 MG/20 ML SYRINGE IVPB ONE (09:00)
[2021-09-26] MEDS ORDERED: NiCARdipine 2.5 MG/10 ML Syringe IVPB ONE (09:15)
[2021-09-26] MEDS ORDERED: *HR* FentaNYL (PF) 100 MCG/2 ML VIAL ONE (09:27)
[2021-09-26] MEDS ORDERED: Heparin 1,000 UNITS/500 mL 2,500 ML ONE (09:35)
[2021-09-26] MEDS ORDERED: ceFAZolin 1,000 MG, Sodium Chloride IRRigation 1,000 ML IR ONE (10:00)
[2021-09-26] MEDS ORDERED: Heparin 1,000 UNITS/500 mL 500 ML ONE ×3 (10:25→13:16)
[2021-09-26] MEDS ORDERED: EPHEDrine 50 MG/ML VIAL ONE (11:11)
[2021-09-26] MEDS ORDERED: *HR* HYDROMORPHONE 2 MG/ML VIAL ONE (12:31)
[2021-09-26] MEDS ORDERED: Acetaminophen IV 1,000 MG/100 ML BAG IVPB ONE (13:50)
[2021-09-26] MEDS ORDERED: Sugammadex Sodium 200 MG/2 ML VIAL IV ONE (13:56)
[2021-09-26] MEDS ORDERED: Naloxone 0.4 MG/ML INJ IVP PRN ×2 (20:09)
[2021-09-26] MEDS ORDERED: *HR* HYDROcodone/Acet 5/325 mg TABLET PO PRN (20:09)
[2021-09-26] MEDS ORDERED: *HR* Labetalol 20 MG/4 ML SYRINGE IVP PRN (20:09)
[2021-09-26] MEDS ORDERED: Ondansetron 4 MG/2 ML VIAL IVP PRN (20:09)
[2021-09-26] MEDS ORDERED: *HR* OxyCODONE Immed Rel 5 MG TABLET PO PRN (20:09)
[2021-09-26] MEDS ORDERED: Acetaminophen/Butalbital/CaffeineTABLET PO PRN (20:09)
[2021-09-26] MEDS ORDERED: 0.9 % Sodium Chloride 1,000 ML IVC SCH (20:09)
[2021-09-26] MEDS: Melatonin 3 MG TABLET PO SCH (21:08)
[2021-09-26] MEDS: CeFAZolin 2,000 MG/120 ML BAG IVPB SCH (21:12)
[2021-09-27] MEDS: *HR* Heparin 5,000 UNIT/ML VIAL SQ SCH ×4 (00:35→23:51)
[2021-09-27 02:29] LABS: Basophils % 0.1 %; Hematocrit 26.8 % (37.5-50.1); Hemoglobin 8.9 g/dL (12.9-16.9); Immature Granulocytes % 0.5 % (0-4); Lymphocytes # 0.6 K/mcL (0.6-4.6); Mean Corpuscular HGB Conc 33.2 g/dL (31.6-35.5); Mean Corpuscular Hemoglobin 29.9 pg (28.0-33.3); Mean Corpuscular Volume 89.9 fL (83.0-100.0); Mean Platelet Volume 11.5 fL (9.4-12.4); Monocytes # 0.5 K/mcL (0.0-1.3); Monocytes % 6.2 %; Neutrophils # 7.1 K/mcL (1.6-8.9); Platelet Count 203 K/mcL (140-400); Red Blood Count 2.98 M/mcL (4.19-5.50); Red Cell Distribution Width 13.2 % (11.5-14.5); Segmented Neutrophils % 86.2 %; White Blood Count 8.2 K/mcL (4.3-11.1)
[2021-09-27 02:51] LABS: BUN/Creatinine Ratio 32 (6-26); Blood Urea Nitrogen 27 mg/dL (8-23); Calcium 8.3 mg/dL (8.6-10.3); Carbon Dioxide 22 mEq/L (23-29); Chloride 107 mEq/L (98-107); Glucose 133 mg/dL (70-105); Magnesium 1.9 mg/dL (1.6-2.6); Osmolality,Calculated 293 (280-300); Potassium 4.3 mEq/L (3.5-5.1); Sodium 138 mEq/L (136-145); eGFR For African Americans > 60 (> 60); eGFR For Non-African Americans > 60 (> 60)
[2021-09-27] MEDS: CeFAZolin 2,000 MG/120 ML BAG IVPB SCH ×2 (04:51→13:12)
[2021-09-27] MEDS: lisinopriL 5 MG TABLET PO SCH (08:08)
[2021-09-27] MEDS: amLODIPine 5 MG TABLET PO SCH ×2 (08:09→20:04)
[2021-09-27] MEDS: Aspirin Enteric Coated 81 MG Tablet PO SCH (08:09)
[2021-09-27] MEDS: carvediloL 6.25 MG TABLET PO SCH ×3 (08:09→15:45)
[2021-09-27] MEDS: polyethylene glycoL 3350 17 GM POWD.PACK PO SCH (08:30)
[2021-09-27] MEDS: Melatonin 3 MG TABLET PO SCH (20:04)
[2021-09-28 06:08] LABS: Basophils % 0.3 %; Eosinophils # 0.1 K/mcL (0.0-0.6); Eosinophils % 1.4 %; Hematocrit 26.9 % (37.5-50.1); Hemoglobin 8.9 g/dL (12.9-16.9); Immature Granulocytes % 0.4 % (0-4); Lymphocytes # 1.5 K/mcL (0.6-4.6); Lymphocytes % 20.4 %; Mean Corpuscular HGB Conc 33.1 g/dL (31.6-35.5); Mean Corpuscular Hemoglobin 29.9 pg (28.0-33.3); Mean Corpuscular Volume 90.3 fL (83.0-100.0); Mean Platelet Volume 11.4 fL (9.4-12.4); Monocytes # 0.7 K/mcL (0.0-1.3); Monocytes % 10.1 %; Neutrophils # 4.8 K/mcL (1.6-8.9); Platelet Count 213 K/mcL (140-400); Red Blood Count 2.98 M/mcL (4.19-5.50); Red Cell Distribution Width 13.6 % (11.5-14.5); Segmented Neutrophils % 67.4 %; White Blood Count 7.1 K/mcL (4.3-11.1)
[2021-09-28 06:25] LABS: BUN/Creatinine Ratio 28 (6-26); Blood Urea Nitrogen 25 mg/dL (8-23); Calcium 8.3 mg/dL (8.6-10.3); Carbon Dioxide 28 mEq/L (23-29); Chloride 106 mEq/L (98-107); Glucose 96 mg/dL (70-105); Osmolality,Calculated 292 (280-300); Potassium 3.7 mEq/L (3.5-5.1); Sodium 139 mEq/L (136-145); eGFR For African Americans > 60 (> 60); eGFR For Non-African Americans > 60 (> 60)
[2021-09-28] MEDS: Aspirin Enteric Coated 81 MG Tablet PO SCH (07:44)
[2021-09-28] MEDS: carvediloL 6.25 MG TABLET PO SCH ×2 (07:44→17:25)
[2021-09-28] MEDS: amLODIPine 5 MG TABLET PO SCH ×2 (07:44→20:28)
[2021-09-28] MEDS: lisinopriL 5 MG TABLET PO SCH (07:44)
[2021-09-28] MEDS: *HR* Heparin 5,000 UNIT/ML VIAL SQ SCH ×3 (07:45→22:10)
[2021-09-28] MEDS: polyethylene glycoL 3350 17 GM POWD.PACK PO SCH (07:45)
[2021-09-28] MEDS: Acetaminophen 325 MG TABLET PO PRN (08:00)
[2021-09-28] MEDS: Melatonin 3 MG TABLET PO SCH (20:28)
[2021-09-29] MEDS: Acetaminophen 325 MG TABLET PO PRN ×2 (00:39→08:04)
[2021-09-29 04:45] LABS: Basophils % 0.5 %; Eosinophils # 0.2 K/mcL (0.0-0.6); Eosinophils % 2.6 %; Hematocrit 28.1 % (37.5-50.1); Hemoglobin 9.1 g/dL (12.9-16.9); Immature Granulocytes % 0.6 % (0-4); Lymphocytes # 1.4 K/mcL (0.6-4.6); Lymphocytes % 20.4 %; Mean Corpuscular HGB Conc 32.4 g/dL (31.6-35.5); Mean Corpuscular Hemoglobin 28.8 pg (28.0-33.3); Mean Corpuscular Volume 88.9 fL (83.0-100.0); Mean Platelet Volume 11.1 fL (9.4-12.4); Monocytes # 0.8 K/mcL (0.0-1.3); Neutrophils # 4.2 K/mcL (1.6-8.9); Platelet Count 211 K/mcL (140-400); Red Blood Count 3.16 M/mcL (4.19-5.50); Red Cell Distribution Width 13.5 % (11.5-14.5); Segmented Neutrophils % 63.9 %; White Blood Count 6.6 K/mcL (4.3-11.1)
[2021-09-29 05:04] LABS: BUN/Creatinine Ratio 26 (6-26); Blood Urea Nitrogen 21 mg/dL (8-23); Calcium 8.5 mg/dL (8.6-10.3); Carbon Dioxide 28 mEq/L (23-29); Chloride 104 mEq/L (98-107); Glucose 107 mg/dL (70-105); Osmolality,Calculated 289 (280-300); Potassium 3.7 mEq/L (3.5-5.1); Sodium 138 mEq/L (136-145); eGFR For African Americans > 60 (> 60); eGFR For Non-African Americans > 60 (> 60)
[2021-09-29 07:07] VITALS: O2SAT 98
[2021-09-29] MEDS: amLODIPine 5 MG TABLET PO SCH ×2 (07:58→15:02)
[2021-09-29] MEDS: carvediloL 6.25 MG TABLET PO SCH ×2 (07:58→15:02)
[2021-09-29] MEDS: *HR* Heparin 5,000 UNIT/ML VIAL SQ SCH (07:59)
[2021-09-29] MEDS: Aspirin Enteric Coated 81 MG Tablet PO SCH (07:59)
[2021-09-29] MEDS: polyethylene glycoL 3350 17 GM POWD.PACK PO SCH (07:59)
[2021-09-29] MEDS ORDERED: lisinopriL 5 MG TABLET PO SCH (09:00)
[2021-09-29 10:56] VITALS: PULSE 69; TEMP 98
[2021-09-29 13:53] VITALS: BP 144/60
== END 2021-09-29 15:34 | disposition home health service (06) | DRG 267 ==
LOC: EMEROOARM 11:42 → 2NNU 17:20 → SUATTDRO 17:20 → 2NNU 18:22 → ICNU 09-17 09:46 → 2NNU 09-18 19:47
PROVIDERS: ADMIT Hospitalist; ATTEND Internal Medicine